=== PATIENT | female | born 1945 | race Caucasian/White ===

== ENCOUNTER 2021-05-25 08:51 | Outpatient (CLI) | payer MEDICARE | END 2021-05-25 08:52 | disposition home or self-care (01) | LOC: CSHULT 08:51 | PROVIDERS: ATTEND Nurse Practitioner Family | DX: E78.2 Mixed hyperlipidemia (principal); I10 Essential (primary) hypertension; E03.9 Hypothyroidism, unspecified; L40.9 Psoriasis, unspecified; R94.5 Abnormal results of liver function studies; K76.89 Other specified diseases of liver | CPT/HCPCS: 93975 ==